=== PATIENT | female | born 1975 | race Caucasian/White ===

== ENCOUNTER 2017-02-05 10:35 | Emergency (ER) | payer OTHER ==
[2017-02-05 11:08] LABS: ABSOLUTE NEUTROPHIL COUNT 3.3 K/mm3 (1.8-7.7); BASO % 0.7 % (0.2-1.0); EOS # 0.1 (0.0-0.5); EOS % 1.8 % (0.9-2.9); HEMATOCRIT 40.7 % (37.0-47.0); IMM NEUT% 0.5 % (0-1); LYMPH # 1.8 (1.0-4.8); LYMPH % 31.5 % (15-45); MEAN CORPUSCULAR HEMOGLOBIN 29.6 pg (27.0-31.0); MEAN CORPUSCULAR HGB CONC 34.4 g/dl (33.0-37.0); MEAN PLATELET VOLUME 9.7 fl (7.4-10.4); MONO # 0.4 (0.0-0.8); MONO % 7.2 % (4-12); NEUT % 58.3 % (43-75); PLATELET COUNT 198 K/mm3 (130-400); RED CELL DISTRIBUTION WIDTH 11.9 % (11.5-14.5)
[2017-02-05] MEDS ORDERED: ASPIRIN CHEWTAB 81 MG TABLET ONE (11:20)
[2017-02-05] MEDS ORDERED: LACTATED RINGERS 1,000 ML ONE (11:20)
[2017-02-05 11:26] LABS: ALB/GLOB RATIO 1.4 (>1.0); ALBUMIN 4.2 gm/dL (3.5-5.7); CALCIUM 9.7 mg/dL (8.6-10.3)
[2017-02-05 11:54] LABS: SPECIFIC GRAVITY 1.015 (1.001-1.030); URINE BILIRUBIN NEGATIVE (NEGATIVE); URINE BLOOD NEGATIVE (NEGATIVE); URINE GLUCOSE (UA) NEGATIVE (NEGATIVE); URINE LEUKOCYTE ESTERASE NEGATIVE (NEGATIVE); URINE NITRITE NEGATIVE (NEGATIVE); URINE PROTEIN NEGATIVE (NEGATIVE); URINE UROBILINOGEN NORMAL (0-1 mg/dl)
[2017-02-05 11:56] LABS: URINE APPEARANCE CLEAR; URINE COLOR YELLOW
[2017-02-05 11:57] LABS: HCG,QUALITATIVE URINE NEGATIVE
--- NOTE | 2017-02-05 12:22 | RAD ---
History: Chest pain. Comparison: None. Technique: 2 views Findings: The soft tissue and bony structures are unremarkable. The heart size is appropriate. No infiltrate, effusion or pneumothorax is observed. The hilar and mediastinal structures are normal. Impression: 1. A negative 2 view chest
== END 2017-02-05 16:12 | disposition home or self-care (01) ==
LOC: ED 10:35
DX: R07.9 Chest pain, unspecified (principal); F17.210 Nicotine dependence, cigarettes, uncomplicated; Z85.89 Personal history of malignant neoplasm of other organs and systems
CPT/HCPCS: 81025; 85025; 80053; 83735; 81003; 84443; 84484 ×2; 71020; 99284 ×2; 96360; 96361; 93005; A9270; J7120